=== PATIENT | male | born 1955 | race Caucasian/White ===

== ENCOUNTER 2020-09-14 09:19 | Outpatient (CLI) | payer OTHER ==
--- NOTE | 2020-09-14 11:48 | XRAY Report ---
PROCEDURE: Hip w/Pelvis 2-3V LT INDICATIONS: PAIN IN LEFT HIP TECHNIQUE: AP pelvis with lateral view of the left hip. COMPARISON: None. FINDINGS: Bones: No acute fractures or dislocations. Pelvic ring appears intact. No suspicious bony lesions. There is moderate joint space narrowing of the superior aspect of the left hip joint with lateral a cetabular spurring. Minimal right acetabular spurring is also seen. Degenerative changes are seen in the included lower lumbar spine. Soft tissues: The visualized bowel gas pattern is normal. No suspicious soft tissue calcifications. IMPRESSION: Moderate left hip osteoarthrosis and minimal right hip osteoarthrosis. No acute osseous abnormality. Reviewed by: Simon Hunt MD on 09/14/2020 11:47 AM PDT Approved by: Simon Hunt MD on 09/14/2020 11:47 AM PDT Station ID: [id number]
== END 2020-09-14 09:20 | disposition home or self-care (01) ==
LOC: DI.N 09:19
PROVIDERS: ATTEND Physician Assistant
DX: M16.0 Bilateral primary osteoarthritis of hip (principal)